=== PATIENT | female | born 1985 | race Caucasian/White ===

== ENCOUNTER 2017-01-31 12:30 | Inpatient (IN) | payer OTHER ==
[~2017-01-31] VITALS: Ht 157.5 cm; Wt 71.0 kg
[2017-01-31] VITALS (9 sets, daily range): BP systolic 105–123; BP diastolic 68–84; PULSE 82–103; RESP 18; TEMP 98–98.3
[~2017-01-31 12:30] MED LIST: Z.0.NO CURRENT MEDS
[2017-01-31] MEDS ORDERED: LACTATED RINGER'S 1000 ML INJ 1,000 ML IV PRN (12:43)
[2017-01-31] MEDS ORDERED: CITRIC ACID-SODIUM CITRATE LIQ 30 ML UDC PO SCH (12:45)
[2017-01-31] MEDS ORDERED: ONDANSETRON HCL 4 MG/2 ML VIAL IV PUSH PRN (12:45)
[2017-01-31] MEDS ORDERED: LIDOCAINE HCL 1% 50 ML VIAL I-DERMAL PRN (12:45)
[2017-01-31] MEDS ORDERED: SODIUM CHLORID 0.9% 500 ML INJ 500 ML IV PRN (12:45)
[2017-01-31] MEDS ORDERED: OXYTOCIN 30 UNITS-500ML PREMIX 500 ML IV ONE (12:45)
[2017-01-31] MEDS ORDERED: MINERAL OIL 10 ML VIAL TOPICAL PRN (12:45)
[2017-01-31] MEDS ORDERED: LIDOCAINE HCL 1% 50 ML VIAL INFIL PRN (12:45)
[2017-01-31] MEDS ORDERED: OXYTOCIN 30 UNITS-500ML PREMIX 500 ML IV SCH (12:45)
[2017-01-31] MEDS ORDERED: SODIUM CHLOR 0.9% 1000 ML INJ 1,000 ML IV PRN (13:03)
[2017-01-31 13:11] LABS: AUTOMATED NEUTROPHIL # 10.9 TH/MM3 (1.8-7.7); BASOPHIL # 0.1 TH/MM3 (0-0.2); BASOPHIL % 0.4 % (0.0-2.0); EOSINOPHIL # 0.1 TH/MM3 (0-0.4); EOSINOPHIL % 0.8 % (0.0-4.0); HEMATOCRIT 39.4 % (35.0-46.0); LYMPHOCYTE # 2.8 TH/MM3 (1.0-4.8); MEAN CORPUSCULAR HEMOGLOBIN 26.2 PG (27.0-34.0); MEAN CORPUSCULAR HGB CONC 31.6 % (32.0-36.0); MONO % 6.8 % (0.0-8.0); PLATELET COUNT 267 TH/MM3 (150-450); RED BLOOD COUNT 4.74 MIL/MM3 (4.00-5.30); RED CELL DISTRIBUTION WIDTH 21.3 % (11.6-17.2); WHITE BLOOD COUNT 14.9 TH/MM3 (4.0-11.0)
[2017-01-31 13:16] LABS: BACTERIA, URINE RARE /hpf; BLOOD, URINE LARGE (NEG); COMMENT (UR) CULTURE INDICATED; CULTURE IF INDICATED CULTURE INDICATED; GLUCOSE,URINE NEG (NEG); HEMO FLAGS AUTO DIFF; KETONE, URINE NEG (NEG); MUCUS URINE MOD /lpf (OCC); NITRITE,URINE NEG (NEG); SQUAMOUS EPITHELIAL CELL URINE 26 /hpf (0-5); URINE COLOR YELLOW (YELLW/STRAW)
--- NOTE | 2017-01-31 13:45 | MH ---
cc: ROSALIE CERVANTES DATE OF ADMISSION: 01/31/2017 1985 INDICATION FOR ADMISSION Cervical ripening using the Bingham balloon for a young woman at term desiring vaginal after section. HISTORY OF PRESENT ILLNESS The patient is a 31-year-old white female, G3, P2-0-0-2 with LMP not clear but estimated due date of 02/02/2017 by fairly early ultrasound in [place] and consistent with ultrasounds at the custodial. She is currently at 39 and 5/7 weeks. She is in the custodial for issues regarding substance use. She is currently on Subutex 2 mg sublingual daily and Claritin. She had initially a vaginal delivery at term unremarkable, although the baby did have KAROLINE and then in 2006 she had a at [facility] for placental abruption, this was secondary to cocaine use. She is known to have hep C. Her drug of choice was Dilaudid IV. Her last use was 12/22/2016 and she has been on the Subutex as mentioned. She has no labor at this time. She has no diagnosed diabetes, hypertension. Her Hospitality Housekeeper is Judge Martinez. Her public health informatician is Mack Gonzalez. She has been seen twice by me, the first time was January 22 and the second time today January 30. She strongly desires vaginal after section. The ultrasound in our office on January 22 revealed an infant that was cephalic with a posterior placenta, normal amniotic fluid and KEM of 8.55 and a biophysical profile of 6/8 with no breathing motion. She was asked to do daily kick counts and return in 1 week. Today she has good movement. Her cervix is 50% effaced to 1-2 cm and -2 and soft. Urine had trace leukocytes. We have been unable to get any of her lab work, so that will need to be done at the hospital including rapid group B strep. We reviewed in great detail, both in my office and then again by phone from labor and delivery her options. We discussed and decided upon induction today. PHYSICAL EXAMINATION GENERAL: On physical exam she is well-developed, well-nourished female. VITAL SIGNS: Her weight is 154. Her blood pressure is 110/70. NECK: She has no thyroid enlargement. LUNGS: Lungs are clear. HEART: Heart is regular. PELVIC: Her fundus is term. The is vertex. The cervix is 1-2 cm 50% soft anterior and the is vertex and the bag is palpable. EXTREMITIES: Unremarkable with only minimal edema. She does have old track cordero and other scars. IMPRESSION Term intrauterine , history of term for abruptio placenta, history of prior natural delivery, desirous of . I have explained to her that under normal conditions we would wait until natural labor started but because she is currently incarcerated I do not want her laboring at the custodial with a previous section scar. We reviewed the risks and benefits of induction starting with a Bingham balloon and then pitocin. We talked about how continuous monitoring in the presence of staff in the hospital including the laborist places her and her baby in the optimal situation. I explained to her I cannot guarantee her a vaginal but that we are going to do our best to obtain that. She will be maintained on her Subutex throughout the labor, delivery and and then she will return to the custodial after delivery. She has signed consents and has agreed to proceed after additional conversation on speaker phone with Ashley Lara and myself. Rosalie Cervantes MD PPC/TLL /12:56 PM /1:17 PM
[2017-01-31] MEDS: LACTATED RINGER'S 1000 ML INJ 1,000 ML IV SCH ×3 (13:46→22:31)
[2017-01-31 13:53] LABS: BANDS 16 % (0-6); EOSINOPHILS 2 % (0-4); METAMYELOCYTES 1 % (0-1); NEUTROPHIL # MANUAL DIFF 10.7 TH/MM3 (1.8-7.7); POLYS (SEG NEUTROPHILS) 55 % (16-70); WBC DIFF SAMPLE 100
[2017-01-31 13:54] LABS: PLATELET ESTIMATE SMEAR NORMAL (NORMAL); PLATELET MORPHOLOGY NORMAL (NORMAL); SCAN/DIFF FINAL DIFF MANUAL
--- NOTE | 2017-01-31 14:46 | HHI.PR ---
AUTO TRANSPORT DRIVER Note Note 31yo at [id number] here for induction of labor. She is patient of Dr Orozco, please refer to H&P. Cervix 50-3, previous for . FHR 140, reactive, decels are absent. [employer] cervical ripening catheter placed with 80cc in each balloon. Patient tolerated the procedure well. Samantha Franco MD Jan 31, 2017 14:46
[2017-01-31 22:14] LABS: CHLAMYDIA PCR NOT DETECTED (NOT DETECT); NEISSERIA PCR NOT DETECTED (NOT DETECT)
[2017-02-01] VITALS (80 sets, daily range): BP systolic 85–128; BP diastolic 48–80; PULSE 80–129; RESP 15–20; TEMP 97.7–99; O2SAT 100
[2017-02-01] MEDS ORDERED: ePHEDrine/NS 25 MG/5 ML SYRINGE ONE (05:16)
[2017-02-01] MEDS ORDERED: fentaNYL 2MCG-BUPIV 0.125% INJ 100 ML ONE (05:28)
[2017-02-01] MEDS ORDERED: NO SYSTEM NARCOTICS PRN (06:00)
[2017-02-01] MEDS ORDERED: fentaNYL 2MCG-BUPIV 0.125% 100 ML EPIDURAL SCH (06:00)
[2017-02-01] MEDS ORDERED: DO NOT ADMINISTER ANTICOAGULANTS PRN (06:00)
[2017-02-01] MEDS ORDERED: ePHEDrine/NS 25 MG/5 ML SYRINGE IV PUSH PRN (06:15)
[2017-02-01] MEDS: LACTATED RINGER'S 1000 ML INJ 1,000 ML IV SCH (06:16)
--- NOTE | 2017-02-01 07:37 | PD.LABORPN ---
Subjective Subjective sleeping comfortable with epidural Objective Vital Signs Vital Signs Date Time Temp Pulse Resp B/P (MAP) Pulse Ox O2 Delivery O2 Flow Rate FiO2 02/01/17 07:29 98.4 16 02/01/17 07:07 88 98/61 (73) 02/01/17 07:02 92 89/48 (62) 02/01/17 06:55 18 02/01/17 06:30 89 94/56 (69) 02/01/17 06:21 98.4 18 02/01/17 06:15 99 99/64 (76) 02/01/17 06:13 82 108/70 (83) 02/01/17 06:10 107 02/01/17 06:05 90 102/64 (77) 02/01/17 06:01 87 104/68 (80) 02/01/17 05:55 93 106/64 (78) 100 02/01/17 05:55 104 02/01/17 05:50 89 118/74 (89) 02/01/17 05:50 91 100 02/01/17 05:45 92 116/78 (91) 100 02/01/17 05:45 92 02/01/17 05:41 91 114/78 (90) 02/01/17 03:46 18 02/01/17 03:36 97.7 18 02/01/17 03:35 88 106/62 (77) Objective 3=/905/-1 strip category 1 EFW 7 pounds pelvis adequate Gest Age Assessed Date: Feb 01, 2017 Pt started active labor?: Yes Active labor start date: Feb 01, 2017 Active labor start time: 07:36 Medical induction of labor?: Yes Medical induction start date: Feb 01, 2017 Medical induction start time: 07:36 Artificial rupture of membrane: No Assessment/Plan Assessment and Plan use peanut ball antitipate Rosalie Anderson MD Feb 01, 2017 07:37
[2017-02-01] MEDS ORDERED: BUPRENORPHINE HCL 8 MG SUBLINGUAL TAB SL SCH (09:00)
--- NOTE | 2017-02-01 14:06 | PD.LABORPN ---
Subjective Subjective after 90 minutes of pushing, patient is exhuasted. Ready for section Objective Vital Signs Vital Signs Date Time Temp Pulse Resp B/P (MAP) Pulse Ox O2 Delivery O2 Flow Rate FiO2 02/01/17 12:30 116 128/80 (96) 02/01/17 12:15 20 02/01/17 12:10 102 02/01/17 12:05 106 02/01/17 12:00 102 114/64 (81) 02/01/17 12:00 107 02/01/17 11:45 18 02/01/17 11:45 98.9 02/01/17 11:40 105 02/01/17 11:35 100 02/01/17 11:30 97 02/01/17 11:30 105 112/65 (81) 02/01/17 11:15 20 02/01/17 11:10 105 02/01/17 11:05 99 02/01/17 11:00 96 110/65 (80) 02/01/17 11:00 92 02/01/17 10:40 101 02/01/17 10:35 94 02/01/17 10:30 99 109/60 (76) 02/01/17 10:30 102 02/01/17 10:10 110 02/01/17 10:05 129 02/01/17 10:04 18 02/01/17 10:00 97 92/57 (69) 02/01/17 10:00 93 02/01/17 09:55 105 02/01/17 09:50 97 02/01/17 09:45 105 02/01/17 09:40 99 02/01/17 09:35 100 02/01/17 09:30 98 99/59 (72) 02/01/17 09:30 96 02/01/17 09:25 97 02/01/17 09:25 98.9 02/01/17 09:20 98 02/01/17 09:15 112 02/01/17 09:10 98 02/01/17 09:09 18 02/01/17 09:05 99 02/01/17 09:00 18 02/01/17 09:00 99 97/57 (70) 02/01/17 09:00 105 02/01/17 08:55 103 02/01/17 08:50 113 02/01/17 08:45 97 02/01/17 08:40 98 02/01/17 08:35 99 02/01/17 08:30 101 105/65 (78) 02/01/17 08:30 91 02/01/17 08:29 20 02/01/17 08:25 108 02/01/17 08:20 101 02/01/17 08:15 101 02/01/17 08:10 97 02/01/17 08:05 89 02/01/17 08:00 98 02/01/17 08:00 18 02/01/17 08:00 96 95/59 (71) 02/01/17 07:55 111 02/01/17 07:50 91 02/01/17 07:45 101 02/01/17 07:30 106 85/49 (61) 02/01/17 07:29 98.4 16 02/01/17 07:07 88 98/61 (73) 02/01/17 07:02 92 89/48 (62) 02/01/17 06:55 18 02/01/17 06:30 89 94/56 (69) 02/01/17 06:21 98.4 18 02/01/17 06:15 99 99/64 (76) 02/01/17 06:13 82 108/70 (83) 02/01/17 06:10 107 02/01/17 06:05 90 102/64 (77) 02/01/17 06:01 87 104/68 (80) Objective initially a cervical lip persistent and easily pushed away but no descent. No caput. LOP rotated to RONEN (small baby) Multiple attempts to apply vaccums unsuccessful. Unable to apply suction due to long hair and asynclitism. open leukharts obtained and two attempts to apply not successful. With encouragement baby pushed to perineum but without operative assistance of vacuum or forceps I cannot deliver. New meconium noted but strip has been excellent other than some occasional variables. Patient has had a section and one successful delivery. At this point logic and safety require section in the back. Mom and baby are both stable. Mom exhausted. To OR Gest Age Assessed Date: Feb 01, 2017 Pt started active labor?: Yes Active labor start date: Feb 01, 2017 Active labor start time: 07:36 Medical induction of labor?: Yes Medical induction start date: Feb 01, 2017 Medical induction start time: 07:36 Artificial rupture of membrane: No Assessment/Plan Problem List: (1) Failed trial of labor, unspecified ICD Codes: O66.40 - Failed trial of labor, unspecified Assessment and Plan To OR now. Counseled in detail. Watch for NIVIA and cervical laceration during section. Rosalei Orozco MD Feb 01, 2017 14:06
--- NOTE | 2017-02-01 14:24 | PD.OB.DELI ---
Procedure Note Section Procedure Pre Op Diagnosis: (1) Failed trial of labor, unspecified Post Op Diagnosis: (1) Failed trial of labor, delivered, current hospitalization Performed by Rosalie Orozco Procedure: Repeat Low Transverse Sec Indication for delivery: Other (proteracted second stage with maternal exhaustion in context of prior section) Previous condition: None Informed consent obtained: For anesthesia, For procedure Confirmed correct: Patient, Procedure, Site, Time-out taken Anesthesia: Epidural Medication prior to procedure: As documented in eMAR Monitoring during procedure: Blood pressure monitoring, youth nutritional monitor, monitor Urinary catheter: Inserted using sterile technique, To dependent drainage Sterile preparation: Duraprep, In usual fashion, With drapes to expose affected area Position: Supine with wedge to right side Operative Features Skin Incision: Pfannenstiel Uterine Incision: Low transverse w/knife / blunt ext Membranes Ruptured: Previously Presentation: Occiput posterior (with posterior asynclitism) Delivery date: Feb 01, 2017 Delivery time: 14:24 Delivery of infant: Assisted : Male One Minute : 8 Five Minute : 9 Weight: 9 ponds 3 ounces Status of : Viable, Cord blood, Umbilical cord, Nursery present Placenta delivered: Intact Medications: Antibiotics, Oxytocin Estimated blood loss: 500 Procedure tolerated: Well Maternal Condition: Stable Condition: Stable (dictated) Rosalie Orozco MD Feb 01, 2017 14:24
[2017-02-01] MEDS ORDERED: ROPIVACAINE 0.5% PF INJ 30 ML VIAL ONE (14:29)
[2017-02-01] MEDS ORDERED: ONDANSETRON HCL 4 MG/2 ML VIAL IV PUSH PRN (14:30)
[2017-02-01] MEDS ORDERED: ACETAMINOPHEN 1000 MG/100 ML 100 ML IV ONE (14:30)
[2017-02-01] MEDS ORDERED: SIMETHICONE 80 MG CHEWABLE TAB PO PRN (14:30)
[2017-02-01] MEDS ORDERED: ZOLPIDEM TARTRATE 5 MG TAB PO PRN (14:30)
[2017-02-01] MEDS ORDERED: SODIUM CHLORIDE 0.9% FLUSH 10 ML FLUSH IV FLUSH PRN (14:30)
[2017-02-01] MEDS ORDERED: OXYTOCIN 30 UNITS-500ML PREMIX 500 ML IV ONE (14:30)
[2017-02-01] MEDS ORDERED: DEXAMETHASONE SOD PHOS 4 MG/ML VIAL ONE (14:30)
[2017-02-01] MEDS ORDERED: MORPHINE SULFATE PF 5 MG/10 ML VIAL ONE (14:34)
[2017-02-01 14:57] LABS: BLOOD GAS BASE EXCESS -1.1 mmol/L (-2-2); BLOOD GAS O2 HGB SATURATION 8 % (90-100); CORD BLOOD GAS HCO3 25 mmol/L (21-29); CORD BLOOD GAS PCO2 59 mmHG (34-78); CORD BLOOD GAS PH 7.25 (7.14-7.42); CORD BLOOD GAS PO2 10 mmHG (3.0-40.0); DRAW SITE CORD GAS; STAT YES
[2017-02-01] MEDS ORDERED: LACTATED RINGER'S 1000 ML INJ 1,000 ML IV ONE (15:02)
[2017-02-01] MEDS ORDERED: LACTATED RINGER'S 1000 ML INJ 1,000 ML IV SCH ×2 (15:32→19:19)
[2017-02-01] MEDS ORDERED: CITRIC ACID-SODIUM CITRATE LIQ 30 ML UDC PO SCH (16:45)
[2017-02-01] MEDS ORDERED: SODIUM CHLORIDE 0.9% FLUSH 10 ML FLUSH IV FLUSH SCH (21:00)
[2017-02-02] VITALS (7 sets, daily range): BP systolic 87–99; BP diastolic 54–62; PULSE 74–96; RESP 14–18; TEMP 97.6–98.2; O2SAT 95–99
[2017-02-02] MEDS ORDERED: OXYTOCIN 30 UNITS-500ML PREMIX 500 ML IV PRN (00:30)
[2017-02-02] MEDS: KETOROLAC TROMETHAMINE 60 MG/2 ML (IM) VIAL IM PRN ×3 (00:46→13:38)
[2017-02-02] MEDS: oxyCODONE/ACETAMINOPHEN 5 MG/325 MG TAB PO PRN ×3 (07:34→20:37)
[2017-02-02 07:41] LABS: AUTOMATED NEUTROPHIL # 16.7 TH/MM3 (1.8-7.7); BASOPHIL % 0.2 % (0.0-2.0); EOSINOPHIL # 0.1 TH/MM3 (0-0.4); EOSINOPHIL % 0.4 % (0.0-4.0); HEMATOCRIT 26.6 % (35.0-46.0); HEMO FLAGS DIFF FINAL; LYMPH % 11.5 % (9.0-44.0); LYMPHOCYTE # 2.5 TH/MM3 (1.0-4.8); MEAN CELL VOLUME 82.5 FL (80.0-100.0); MEAN CORPUSCULAR HEMOGLOBIN 26.4 PG (27.0-34.0); MONO % 9.3 % (0.0-8.0); NEUT % 78.6 % (16.0-70.0); PLATELET COUNT 217 TH/MM3 (150-450); RED BLOOD COUNT 3.23 MIL/MM3 (4.00-5.30); RED CELL DISTRIBUTION WIDTH 20.8 % (11.6-17.2); WHITE BLOOD COUNT 21.2 TH/MM3 (4.0-11.0)
--- NOTE | 2017-02-02 07:57 | HHI.OB ---
Subjective Post Operative Day: 1 Remarks Uncomfortable at incision site concerned about pain management at longterm case management for baby Objective Vitals/I&O Vital Signs Date Time Temp Pulse Resp B/P (MAP) Pulse Ox O2 Delivery O2 Flow Rate FiO2 02/02/17 05:55 74 88/54 (65) 02/02/17 05:26 14 02/02/17 04:00 16 02/02/17 00:00 98.2 74 94/55 (68) 97 02/01/17 23:58 16 02/01/17 22:00 16 02/01/17 21:00 16 02/01/17 20:00 99.0 100 02/01/17 20:00 101 18 108/66 (80) 02/01/17 18:05 18 02/01/17 17:50 17 02/01/17 16:20 108/62 (77) 02/01/17 16:20 80 16 100 02/01/17 16:05 81 17 100 02/01/17 16:05 98.4 02/01/17 16:05 110/68 (82) 02/01/17 15:50 87 18 106/66 (79) 100 02/01/17 15:35 15 100 02/01/17 15:35 102/66 (78) 02/01/17 15:35 88 02/01/17 15:20 102 16 02/01/17 15:20 100/58 (72) 02/01/17 15:20 100 02/01/17 15:10 98.8 02/01/17 15:10 112 16 02/01/17 15:10 100 02/01/17 15:05 106/56 (73) 02/01/17 15:05 112 02/01/17 14:00 107 117/69 (85) 02/01/17 12:30 116 128/80 (96) 02/01/17 12:15 20 02/01/17 12:10 102 02/01/17 12:05 106 02/01/17 12:00 102 114/64 (81) 02/01/17 12:00 107 02/01/17 11:45 18 02/01/17 11:45 98.9 02/01/17 11:40 105 02/01/17 11:35 100 02/01/17 11:30 97 02/01/17 11:30 105 112/65 (81) 02/01/17 11:15 20 02/01/17 11:10 105 02/01/17 11:05 99 02/01/17 11:00 96 110/65 (80) 02/01/17 11:00 92 02/01/17 10:40 101 02/01/17 10:35 94 02/01/17 10:30 99 109/60 (76) 02/01/17 10:30 102 02/01/17 10:10 110 02/01/17 10:05 129 02/01/17 10:04 18 02/01/17 10:00 97 92/57 (69) 02/01/17 10:00 93 02/01/17 09:55 105 02/01/17 09:50 97 02/01/17 09:45 105 02/01/17 09:40 99 02/01/17 09:35 100 02/01/17 09:30 98 99/59 (72) 02/01/17 09:30 96 02/01/17 09:25 97 02/01/17 09:25 98.9 02/01/17 09:20 98 02/01/17 09:15 112 02/01/17 09:10 98 02/01/17 09:09 18 02/01/17 09:05 99 02/01/17 09:00 18 02/01/17 09:00 99 97/57 (70) 02/01/17 09:00 105 02/01/17 08:55 103 02/01/17 08:50 113 02/01/17 08:45 97 02/01/17 08:40 98 02/01/17 08:35 99 02/01/17 08:30 101 105/65 (78) 02/01/17 08:30 91 02/01/17 08:29 20 02/01/17 08:25 108 02/01/17 08:20 101 02/01/17 08:15 101 02/01/17 08:10 97 02/01/17 08:05 89 02/01/17 08:00 98 02/01/17 08:00 18 02/01/17 08:00 96 95/59 (71) Result Diagram: 02/02/17 0651 Objective Remarks GENERAL: Well-nourished, well-developed patient. CARDIOVASCULAR: Regular rate and rhythm without murmurs, gallops, or rubs. RESPIRATORY: Breath sounds equal bilaterally. No accessory muscle use. ABDOMEN/GI: Abdomen soft, non-tender, bowel sounds present. Incision:bandage dry GENITOURINARY: Light to moderate bleeding. EXTREMITIES: No cyanosis or edema, non-tender, without signs of DVT. Medications and IVs Current Medications Medications (Trade) Dose Ordered Sig/Claudio Route Start Time Stop Time Status Last Admin Lactated Ringer's 1,000 ml @ 100 mls/hr Q10H IV 02/01/17 19:19 02/02/17 15:18 Oxytocin 500 ml @ 100 mls/hr UNSCH X1 PRN IV 02/02/17 00:30 02/03/17 00:29 (NS Flush) 2 ml BID IV FLUSH 02/01/17 21:00 (NS Flush) 2 ml UNSCH PRN IV FLUSH 02/01/17 14:30 (Mylicon Chew) 80 mg QID PRN PO 02/01/17 14:30 (Toradol Inj) 30 mg Q6H PRN IM 02/01/17 14:30 02/02/17 14:29 02/02/17 07:33 (Percocet 5-325 Mg) 1 tab Q4H PRN PO 02/01/17 14:30 (Percocet 5-325 Mg) 2 tab Q4H PRN PO 02/01/17 14:30 02/02/17 07:34 (Lisa-Colace) 2 tab Q12H PRN PO 02/01/17 14:30 (Ambien) 5 mg HS PRN PO 02/01/17 14:30 (M-M-R Ii Inj) 0.5 ml ONCE ONCE SQ 02/02/17 16:00 02/02/17 16:01 (Boostrix Inj) 0.5 ml ONCE ONCE IM 02/02/17 16:00 02/02/17 16:01 02/02/17 01:17 (Zofran Inj) 4 mg Q6H PRN IV PUSH 02/01/17 14:30 (Buprenorphine) 4 mg DAILY SL 02/02/17 09:00 Lactated Ringer's 1,000 ml @ 150 mls/hr Q6H40M IV 02/01/17 15:32 (Bicitra Liq) 30 ml SCIENCE SPECIALIST PO 02/01/17 16:45 02/05/17 16:44 Cefazolin Sodium 1000 mg/Sodium Chloride 100 ml @ 200 mls/hr SCIENCE SPECIALIST IV 02/01/17 16:15 02/05/17 16:14 Assessment/Plan Problem List: (1) Failed trial of labor, unspecified ICD Codes: O66.40 - Failed trial of labor, unspecified Assessment and Plan POD 1 after extended second stage TOLAC that reached . baby was asynclitic and over 9 pounds on subutex 4 mg in am because we have no way to give 2 mg like in the longterm receiving percocet here as needed but will have no opioid in the longterm if can keep third day would be a kindness. needs venifer for anemia. Rosalie Orozco MD Feb 02, 2017 07:57
[2017-02-02] MEDS ORDERED: IRON SUCROSE 100 MG/5 ML VIAL IV PUSH ONE (09:00)
[2017-02-02] MEDS: BUPRENORPHINE HCL 8 MG SUBLINGUAL TAB SL SCH (09:06)
[2017-02-02] MEDS ORDERED: IRON SUCROSE INJ 200 MG in SODIUM CHLORIDE 0.9% INJ 100 ML IV ONE (09:45)
[2017-02-02] MEDS: DOCUSATE SODIUM 50 MG/SENNA 8.6 MG TAB PO PRN (13:36)
[2017-02-02] MEDS ORDERED: MEASLES, MUMPS, RUBELLA VACCINE 0.5 ML VIAL SQ ONE (16:00)
[2017-02-02] MEDS ORDERED: DIPHTH/TETANUS/ACEL PERTUSSIS (BOOSTER) 0.5 ML VIAL/PFS IM ONE (16:00)
[2017-02-03] MEDS: DOCUSATE SODIUM 50 MG/SENNA 8.6 MG TAB PO PRN ×2 (01:23→14:43)
[2017-02-03] MEDS: oxyCODONE/ACETAMINOPHEN 5 MG/325 MG TAB PO PRN ×5 (01:23→18:47)
[2017-02-03 08:00] VITALS: BP 100/63; PULSE 77; RESP 19; TEMP 97.8; O2SAT 100
[2017-02-03 08:42] LABS: BASOPHIL % 0.4 % (0.0-2.0); EOSINOPHIL # 0.2 TH/MM3 (0-0.4); HEMATOCRIT 25.2 % (35.0-46.0); LYMPH % 17.4 % (9.0-44.0); LYMPHOCYTE # 1.9 TH/MM3 (1.0-4.8); MEAN CELL VOLUME 82.8 FL (80.0-100.0); MEAN CORPUSCULAR HEMOGLOBIN 26.8 PG (27.0-34.0); MEAN CORPUSCULAR HGB CONC 32.3 % (32.0-36.0); MONO % 8.7 % (0.0-8.0); NEUT % 71.5 % (16.0-70.0); PLATELET COUNT 216 TH/MM3 (150-450); RED BLOOD COUNT 3.04 MIL/MM3 (4.00-5.30); RED CELL DISTRIBUTION WIDTH 21.1 % (11.6-17.2); WHITE BLOOD COUNT 11.2 TH/MM3 (4.0-11.0)
[2017-02-03 08:48] LABS: HEMO FLAGS AUTO DIFF
[2017-02-03 09:33] LABS: BANDS 14 % (0-6); NEUTROPHIL # MANUAL DIFF 9.2 TH/MM3 (1.8-7.7); POLYS (SEG NEUTROPHILS) 68 % (16-70); WBC DIFF SAMPLE 100
[2017-02-03 09:34] LABS: PLATELET ESTIMATE SMEAR NORMAL (NORMAL); PLATELET MORPHOLOGY NORMAL (NORMAL); SCAN/DIFF FINAL DIFF MANUAL
[2017-02-03] MEDS: BUPRENORPHINE HCL 8 MG SUBLINGUAL TAB SL SCH (09:37)
--- NOTE | 2017-02-03 13:00 | HHI.OB ---
Subjective Post Operative Day: 2 Remarks Doing well Pain is controlled Baby is doing well Bleeding is normal. Objective Vitals/I&O Vital Signs Date Time Temp Pulse Resp B/P (MAP) Pulse Ox O2 Delivery O2 Flow Rate FiO2 02/03/17 08:00 97.8 77 19 100/63 (75) 100 02/02/17 20:00 97.6 96 18 95 02/02/17 20:00 99/59 (72) Result Diagram: 02/03/17 0817 Objective Remarks GENERAL: Well-nourished, well-developed patient. CARDIOVASCULAR: Regular rate and rhythm without murmurs, gallops, or rubs. RESPIRATORY: Breath sounds equal bilaterally. No accessory muscle use. ABDOMEN/GI: Abdomen soft, non-tender, bowel sounds present. Incision:bandage dry GENITOURINARY: Light to moderate bleeding. EXTREMITIES: No cyanosis or edema, non-tender, without signs of DVT. Medications and IVs Current Medications Medications (Trade) Dose Ordered Sig/Claudio Route Start Time Stop Time Status Last Admin (NS Flush) 2 ml BID IV FLUSH 02/01/17 21:00 (NS Flush) 2 ml UNSCH PRN IV FLUSH 02/01/17 14:30 (Mylicon Chew) 80 mg QID PRN PO 02/01/17 14:30 (Percocet 5-325 Mg) 1 tab Q4H PRN PO 02/01/17 14:30 (Percocet 5-325 Mg) 2 tab Q4H PRN PO 02/01/17 14:30 02/03/17 10:47 (Lisa-Colace) 2 tab Q12H PRN PO 02/01/17 14:30 02/03/17 01:23 (Ambien) 5 mg HS PRN PO 02/01/17 14:30 (Zofran Inj) 4 mg Q6H PRN IV PUSH 02/01/17 14:30 (Buprenorphine) 4 mg DAILY SL 02/02/17 09:00 02/03/17 09:37 Lactated Ringer's 1,000 ml @ 150 mls/hr Q6H40M IV 02/01/17 15:32 (Bicitra Liq) 30 ml CONFERENCE COORDINATOR PO 02/01/17 16:45 02/05/17 16:44 Cefazolin Sodium 1000 mg/Sodium Chloride 100 ml @ 200 mls/hr CONFERENCE COORDINATOR IV 02/01/17 16:15 02/05/17 16:14 Assessment/Plan Problem List: (1) Failed trial of labor, unspecified ICD Codes: O66.40 - Failed trial of labor, unspecified Assessment and Plan POD #2 Severe anemia Continue venofer Check f'u cbc Consider d/c home tomorrow Bella Butler MD Feb 03, 2017 13:00
[2017-02-03] MEDS ORDERED: IRON SUCROSE INJ 200 MG in SODIUM CHLORIDE 0.9% INJ 100 ML IV ONE (17:00)
[2017-02-03 20:00] VITALS: BP 112/69; PULSE 71; RESP 16; TEMP 98
[2017-02-03] MEDS ORDERED: KETOROLAC TROMETHAMINE 30 MG/ML (IVP) VIAL IV PUSH SCH (22:00)
[2017-02-03] MEDS ORDERED: IBUPROFEN 800 MG TAB PO PRN (22:00)
[2017-02-04] MEDS: oxyCODONE/ACETAMINOPHEN 5 MG/325 MG TAB PO PRN ×2 (06:04→09:57)
[2017-02-04 07:30] LABS: HEMATOCRIT 26.9 % (35.0-46.0); MEAN CELL VOLUME 83.8 FL (80.0-100.0); MEAN CORPUSCULAR HEMOGLOBIN 27.7 PG (27.0-34.0); MEAN CORPUSCULAR HGB CONC 33.1 % (32.0-36.0); PLATELET COUNT 244 TH/MM3 (150-450); RED BLOOD COUNT 3.21 MIL/MM3 (4.00-5.30); RED CELL DISTRIBUTION WIDTH 21.1 % (11.6-17.2); REVIEW FLAG FINAL
[2017-02-04 07:43] VITALS: BP 104/63; PULSE 72; RESP 20; TEMP 98.1
[2017-02-04] MEDS: BUPRENORPHINE HCL 8 MG SUBLINGUAL TAB SL SCH (08:38)
[2017-02-04] MEDS ORDERED: IRON SUCROSE INJ 200 MG in SODIUM CHLORIDE 0.9% INJ 100 ML IV SCH (09:00)
--- NOTE | 2017-02-05 07:53 | MP ---
cc: ROSALIE CERVANTES M.D. DATE OF SURGERY: 01/31/2017 PREOPERATIVE DIAGNOSIS: 1. Arrest of descent in second stage of labor, 2. Trial of labor after section. SURGEON: Rosalie Cervantes MD. TOOLING ENGINEERING TECH: Staff. ANESTHESIA: Epidural with Duramorph and a tap performed post . FINDINGS: A living male was delivered from [facility] with meconium-stained fluid and no nuchal cord. His Apgars were 8 at one and 9 at five. He had a small catheter cephalhematoma to the one side consistent with the posterior asynclitism noted during pushing. His blood gas was 7.25. His weight was 9 pounds 3 ounces. Uterus was unremarkable. Tubes and ovaries were normal. There was no window from a prior . Estimated blood loss was average. A tubal had been declined. Sponge, instrument, needle counts were correct and mom and baby went to the recovery room in stable condition. DESCRIPTION OF THE PROCEDURE IN DETAIL: The patient was taken to the operating room and prepped and draped after her epidural was reinforced. She had sequential stockings on, a Tim catheter in place and was given 2 grams of Ancef. After assuring adequate analgesia, a Pfannenstiel's incision was made with a knife and carried down through the rectus fascia. The rectus fascia was incised with a knife and taken off the rectus muscle. The rectus muscle was in the midline. The parietal peritoneum was entered sharply and a bladder flap created off the lower uterine segment. The uterus was entered encountering meconium-stained fluid. The baby at this point was in LOT position and it was delivered easily. No nuchal cord was appreciated. The cord clamping was delayed 45 seconds and then the cord clamped and cut and he was handed to the neonatology team in attending. The cord gas was obtained and cord blood was obtained and then the placenta was delivered manually intact with a three-vessel cord. The uterus was exteriorized, cleaned with a lap sponge and closed with chromic in a running interlocking fashion with a second horizontal imbricating layer. The uterus was replaced the abdominal cavity. Copious irrigation was performed and the rectus muscles approximated with a running stitch. The fascia was closed with running stitch non-interlocking. The subcutaneous fat was closed with 3-0 plain and the skin was closed with 4-0 Vicryl on a Sebas needle. Estimated blood loss was 500 mL. Sponge, instrument, needle counts correct. She tolerated the procedure well and went to the recovery room stable. MD NANETTE Banda/JCRadha /3:11 PM /7:30 AM
== END 2017-02-04 11:07 | DRG 765 ==
LOC: H2EB 12:30 → H1EA 02-01 16:35
PROVIDERS: ADMIT Obstetrics & Gynecology; ATTEND Obstetrics & Gynecology
PROC: 3E0P3VZ Introduction of Hormone into Female Reproductive, Percutaneous Approach (ICD-10-PCS; 2017-01-31)
PROC: 10D00Z1 Extraction of Products of Conception, Low, Open Approach (ICD-10-PCS; principal; 2017-02-01)
DX: O34.211 Maternal care for low transverse scar from previous cesarean delivery (principal); O98.42 Viral hepatitis complicating childbirth; O99.324 Drug use complicating childbirth; O99.02 Anemia complicating childbirth; O62.1 Secondary uterine inertia; O77.0 Labor and delivery complicated by meconium in amniotic fluid; O32.8XX0 Maternal care for other malpresentation of fetus, not applicable or unspecified; O66.40 Failed trial of labor, unspecified; O75.81 Maternal exhaustion complicating labor and delivery; D64.9 Anemia, unspecified; B19.20 Unspecified viral hepatitis C without hepatic coma; Z37.0 Single live birth; Z3A.39 39 weeks gestation of pregnancy
CPT/HCPCS: 59025; 80307; 81001; 82805; 85007; 85025; 85027; 86703; 86850; 86900; 86901; 87086; 87491; 87591; 90715; J0131; J1100; J1756; J1885; J2274; J2590; J2795; J3010; J7120